=== PATIENT | male | born 1980 | race Caucasian/White ===

== ENCOUNTER → 2018-09-25 | Outpatient (CLI) | payer BC ==
--- NOTE | 2018-09-25 15:18 | Diagnostic Imaging Report ---
PROCEDURE: MR imaging cervical spine without contrast. TECHNIQUE: Multiplanar, multisequence MR imaging of the cervical spine was performed without contrast. INDICATION: Neck pain, left arm pain as well as left hand numbness. No prior studies are available for comparison. There is straightening of the normal cervical lordotic curvature. Vertebral body marrow signal is normal. No geographic marrow lesion or fracture seen. There is some generalized desiccation compatible with degenerative change. The cervical cord does show homogeneous signal intensity and normal morphology. C2-C3: The central canal and neural foramina are widely patent. C3-C4: There appears to be some mild narrowing of the left neural foramen due to uncovertebral joint degenerative change. Right neural foramen and central canal are patent. C4-C5: Central canal is patent. Neuroforamina appear patent. C5-C6: Broad-based disc/osteophyte complex does indent the ventral thecal sac producing mild narrowing of the canal. Neural foramina are patent. C6-C7: There are prominent broad-based disc/osteophyte indenting the ventral thecal sac producing a mild narrowing of the canal. There is narrowing of bilateral neural foramina. C7-T1: Unremarkable. IMPRESSION: Cervical spondylosis with mild central canal and neuroforaminal narrowing described level by level above. Dictated by: Dictated on workstation # [id number]
== END ==
LOC: RAD 13:43
PROVIDERS: ATTEND Pediatrics
DX: M47.812 Spondylosis without myelopathy or radiculopathy, cervical region (principal); M48.02 Spinal stenosis, cervical region
CPT/HCPCS: 72141